=== PATIENT | female | born 1950 | race Caucasian/White ===

== ENCOUNTER 2018-05-15 15:19 | Observation (INO) | payer MEDICARE, MEDICAID ==
[~2018-05-15] VITALS: Ht 162.6 cm; Wt 86.8 kg
[~2018-05-15 15:19] MED LIST: ALPR-624 PO; DULO-31 PO; FLUT1DIS4 INH; LEVO100T9 PO; MONT10TA21 PO; PREG150C PO; VERA240C2 PO
[2018-05-15] MEDS ORDERED: aspirin 81mg tab.chew PO ONE (15:35)
[2018-05-15 15:52] LABS: BASOPHILS % (AUTO) 0.3 % (0-1); EOSINOPHILS # (AUTO) 0.4 X10'3 (0-0.9); EOSINOPHILS % (AUTO) 3.8 % (0-6); HEMATOCRIT 47.5 % (35.0-45.0); LYMPHOCYTES # (AUTO) 2.1 X10'3 (1.1-4.8); MEAN CORPUSCULAR HEMOGLOBIN 31.7 PG (27.0-31.0); MEAN CORPUSCULAR HGB CONC 33.6 % (33.0-36.5); MEAN CORPUSCULAR VOLUME 94.4 FL (78-98); MONOCYTES # (AUTO) 0.6 X10'3 (0-0.9); MONOCYTES % (AUTO) 6.2 % (2-12); NEUTROPHILS # (AUTO) 6.1 X10'3 (1.8-7.7); NEUTROPHILS % (AUTO) 66.7 % (42-75); PLATELET COUNT 209 X10'3 (140-440); RED BLOOD COUNT 5.03 X10'6 (4.20-5.60); RED CELL DISTRIBUTION WIDTH 13.4 % (11.5-14.5); WHITE BLOOD COUNT 9.2 X10'3 (4.5-11.0)
[2018-05-15] MEDS: nitroGLYCERIN 0.4mg SUBLingual tab SL PRN ×2 (15:58→16:08)
[2018-05-15 16:08] LABS: ALANINE AMINOTRANSFERASE 56 U/L (12-78); ALBUMIN 4.3 G/DL (3.4-5.0); ALBUMIN/GLOBULIN RATIO 1.3 (1.1-1.5); ALKALINE PHOSPHATASE 150 IU/L (46-116); ANION GAP 8 (8-16); ASPARTATE AMINO TRANSFERASE 29 U/L (10-37); BILIRUBIN,TOTAL 0.7 MG/DL (0.1-1.0); BLOOD UREA NITROGEN 13 MG/DL (7-18); BUN/CREATININE RATIO 15.1 (6.6-38.0); CALCIUM 9.4 MG/DL (8.5-10.1); CHLORIDE 103 MMOL/L (99-107); CREATININE 0.86 MG/DL (0.40-0.90); GLUCOSE 141 MG/DL (70-104); POTASSIUM 3.4 MMOL/L (3.5-5.1); SODIUM 139 MMOL/L (135-145); TOTAL CARBON DIOXIDE 27.7 MMOL/L (24-32); TOTAL PROTEIN 7.5 G/DL (6.4-8.2); eGFR 66 ML/MIN
[2018-05-15 16:09] LABS: PARTIAL THROMBOPLASTIN TIME 27 SECONDS (22-32); PROTHROMBIN TIME 10.6 SECONDS (9.0-12.0)
[2018-05-15] MEDS ORDERED: metoprolol tartrate 1mg/ml inj IV ONE (16:20)
[2018-05-15] MEDS ORDERED: [UNRECOGNIZED DRUG - CODE] PO (16:40)
[2018-05-15] MEDS ORDERED: CELE200C PO (16:41)
[2018-05-15] MEDS ORDERED: GABA-532 PO (16:41)
[2018-05-15] MEDS ORDERED: SYN0.088T PO (16:43)
[2018-05-15] MEDS ORDERED: BUSP10TA3 PO (16:43)
[2018-05-15] MEDS ORDERED: TRAZ-219 PO (16:45)
[2018-05-15] MEDS ORDERED: CYCL-394 PO (16:46)
[2018-05-15] MEDS ORDERED: LEVA15HF4 INH (16:47)
[2018-05-15] MEDS ORDERED: ATOR10TA87 PO (16:49)
[2018-05-15] MEDS ORDERED: HYDR-4353 PO (16:49)
[2018-05-15] MEDS ORDERED: ASPI81TA52 PO (16:51)
[2018-05-15] MEDS ORDERED: CETI10TA15 PO (16:53)
[2018-05-15] MEDS ORDERED: ACET-2144 PO (16:53)
[2018-05-15] MEDS ORDERED: OXYM30SP67 (16:57)
[2018-05-15] MEDS ORDERED: VITA0.4T2 PO (16:57)
[2018-05-15] MEDS ORDERED: BIOT10006 PO (16:57)
[2018-05-15] MEDS ORDERED: MULT-1133 PO (16:57)
[2018-05-15] MEDS ORDERED: MELA10TA2 PO (16:57)
[2018-05-15] MEDS ORDERED: DIPH25CA83 PO (16:57)
[2018-05-15] MEDS ORDERED: MAGN500C16 PO (16:57)
[2018-05-15] MEDS ORDERED: potassium Cl 40MEQ/NS 500ml 500 ML IV PRN ×2 (17:35)
[2018-05-15] MEDS ORDERED: HYDROcodone/acetaminophen 10/325mg tab PO PRN ×2 (17:35→17:45)
[2018-05-15] MEDS ORDERED: potassium Cl 20 mEq SR tablet PO PRN ×2 (17:35)
[2018-05-15] MEDS ORDERED: bisacodyl 10mg suppository rectal RC PRN (17:35)
[2018-05-15] MEDS ORDERED: acetaminophen 325mg tablet PO PRN ×2 (17:35→17:45)
[2018-05-15] MEDS ORDERED: magnesium hydroxide 30ml (MOM) UD suspension PO PRN (17:35)
[2018-05-15] MEDS ORDERED: HYDROcodone/acetaminophen 5mg/325mg tablet PO PRN (17:35)
[2018-05-15] MEDS ORDERED: magnesium 4gm in 100ml NS 100 ML IV PRN (17:35)
[2018-05-15] MEDS ORDERED: magnesium Cl slow-release 64mg tablet PO PRN (17:35)
[2018-05-15] MEDS ORDERED: magnesium 1gm/100ml D5W IVPB 100 ML IV PRN (17:35)
[2018-05-15] MEDS ORDERED: ondansetron/PF 4mg/2ml inj IV PRN (17:35)
[2018-05-15] MEDS ORDERED: mag hydrox/Alum hydrox/simeth 30ml oral suspension PO PRN (17:35)
[2018-05-15] MEDS ORDERED: nitroGLYCERIN 0.4mg SUBLingual tab SL PRN (17:40)
[2018-05-15] MEDS ORDERED: lisinopril 10 MG tablet PO SCH (17:40)
[2018-05-15] MEDS ORDERED: potassium Cl 20 mEq SR tablet PO STA (17:43)
[2018-05-15] MEDS: pantoprazole 40 MG vial IV SCH (18:36)
[2018-05-15] MEDS: LIDOcaine 5% patch TP SCH (18:37)
[2018-05-15] MEDS: potassium cl 20mEq in 1/2 NS 1,000 ML IV SCH (18:46)
[2018-05-15] MEDS ORDERED: albuterol 2.5 MG/3 ML nebule NEB PRN (18:55)
[2018-05-15] MEDS: albuterol 2.5 MG/3 ML nebule NEB SCH (19:00)
[2018-05-15] MEDS: losartan 50mg tablet PO SCH (19:25)
[2018-05-15] MEDS: amLODIPine 5mg tablet PO SCH (19:26)
[2018-05-15] MEDS: BUDESONIDE 0.25 MG/2 ML AMPUL.NEB IH SCH (20:00)
[2018-05-15] MEDS ORDERED: albuterol 2.5 MG/3 ML nebule NEB SCH (20:00)
[2018-05-15] MEDS: busPIRone 15mg tablet PO SCH (20:20)
[2018-05-15] MEDS: docusate sod 100mg capsule PO SCH (20:20)
[2018-05-15] MEDS ORDERED: magnesium oxide 400mg tablet PO SCH (21:00)
[2018-05-15] MEDS ORDERED: Melatonin 3mg tablet PO SCH (21:00)
[2018-05-15] MEDS ORDERED: cyclobenzaprine 10mg tablet PO SCH (21:00)
[2018-05-15] MEDS ORDERED: traZODone 50mg tablet PO SCH (21:00)
[2018-05-15] MEDS ORDERED: montelukast 10mg tablet PO SCH (21:00)
[2018-05-15 21:10] VITALS: BP 186/72
[2018-05-15] MEDS: gabapentin 300mg capsule PO SCH (21:24)
[2018-05-16] VITALS: BP 157/76
[2018-05-16 03:47] LABS: BASOPHILS % (AUTO) 0.4 % (0-1); EOSINOPHILS # (AUTO) 0.4 X10'3 (0-0.9); EOSINOPHILS % (AUTO) 5.3 % (0-6); HEMATOCRIT 43.2 % (35.0-45.0); HEMOGLOBIN 14.2 g/dl (12.0-16.0); LYMPHOCYTES # (AUTO) 2.2 X10'3 (1.1-4.8); LYMPHOCYTES % (AUTO) 29.3 % (21-51); MEAN CORPUSCULAR HEMOGLOBIN 31.1 PG (27.0-31.0); MEAN CORPUSCULAR VOLUME 94.4 FL (78-98); MEAN PLATELET VOLUME 9.1 FL (7.4-10.4); MONOCYTES # (AUTO) 0.7 X10'3 (0-0.9); MONOCYTES % (AUTO) 9.4 % (2-12); NEUTROPHILS # (AUTO) 4.1 X10'3 (1.8-7.7); NEUTROPHILS % (AUTO) 55.6 % (42-75); PLATELET COUNT 182 X10'3 (140-440); RED BLOOD COUNT 4.57 X10'6 (4.20-5.60); RED CELL DISTRIBUTION WIDTH 13.4 % (11.5-14.5); WHITE BLOOD COUNT 7.4 X10'3 (4.5-11.0)
[2018-05-16 04:01] LABS: ALANINE AMINOTRANSFERASE 44 U/L (12-78); ALBUMIN 3.4 G/DL (3.4-5.0); ALBUMIN/GLOBULIN RATIO 1.2 (1.1-1.5); ALKALINE PHOSPHATASE 125 IU/L (46-116); ANION GAP 9 (8-16); ASPARTATE AMINO TRANSFERASE 21 U/L (10-37); BILIRUBIN,TOTAL 0.7 MG/DL (0.1-1.0); BLOOD UREA NITROGEN 14 MG/DL (7-18); BUN/CREATININE RATIO 17.9 (6.6-38.0); CALCIUM 8.8 MG/DL (8.5-10.1); CHLORIDE 109 MMOL/L (99-107); CREATININE 0.78 MG/DL (0.40-0.90); GLUCOSE 113 MG/DL (70-104); POTASSIUM 3.9 MMOL/L (3.5-5.1); SODIUM 143 MMOL/L (135-145); TOTAL PROTEIN 6.2 G/DL (6.4-8.2); eGFR 74 ML/MIN
[2018-05-16 04:04] LABS: CHOL/HDL RATIO 3.4 (0.00-4.99); CHOLESTEROL 168 MG/DL (0-200); HDL CHOLESTEROL 49 MG/DL (35-60); LDL CHOLESTEROL 102 MG/DL (50-100); TRIGLYCERIDES 95 MG/DL (20-135)
[2018-05-16] MEDS: potassium cl 20mEq in 1/2 NS 1,000 ML IV SCH (05:08)
[2018-05-16] MEDS: BUDESONIDE 0.25 MG/2 ML AMPUL.NEB IH SCH (07:15)
[2018-05-16] MEDS: albuterol 2.5 MG/3 ML nebule NEB SCH ×2 (07:15→10:22)
[2018-05-16 07:33] VITALS: BP 168/86
[2018-05-16] MEDS ORDERED: duloxetine 30mg CAPSULE.DR PO SCH (08:00)
[2018-05-16] MEDS ORDERED: cetirizine 10mg tablet PO SCH (08:00)
[2018-05-16] MEDS ORDERED: vitamin B comp w/Vit. C tab 1 TAB TABLET PO SCH (08:00)
[2018-05-16] MEDS ORDERED: multivitamins, therapeutics tablet PO SCH (08:00)
[2018-05-16] MEDS ORDERED: levoTHYROXINE 88mcg tablet PO SCH (08:00)
[2018-05-16] MEDS ORDERED: atorvastatin 10mg tablet PO SCH (08:00)
[2018-05-16] MEDS ORDERED: K and/or MAG REPLACEMENT MC SCH (08:00)
[2018-05-16] MEDS ORDERED: aspirin 81mg tablet.DR PO SCH ×2 (08:00)
[2018-05-16] MEDS: busPIRone 15mg tablet PO SCH (08:02)
[2018-05-16] MEDS: losartan 50mg tablet PO SCH (08:03)
[2018-05-16] MEDS: docusate sod 100mg capsule PO SCH (08:03)
[2018-05-16] MEDS: gabapentin 300mg capsule PO SCH ×2 (08:03→13:37)
[2018-05-16] MEDS: amLODIPine 5mg tablet PO SCH (08:05)
[2018-05-16] MEDS: LIDOcaine 5% patch TP SCH (08:06)
[2018-05-16] MEDS ORDERED: amLODIPine 5mg tablet PO SCH (08:50)
[2018-05-16] MEDS: pantoprazole 40 MG vial IV SCH (09:16)
[2018-05-16] MEDS ORDERED: oxymetazoline 15 ML nasal spray NS PRN (10:05)
[2018-05-16 10:30] VITALS: BP 146/78
[2018-05-16] MEDS ORDERED: LIDO700A47 TP (13:43)
[2018-05-16] MEDS ORDERED: NITR0.4T51 SL (13:43)
[2018-05-16] MEDS ORDERED: PANT-47 PO (13:54)
[2018-05-17] MEDS ORDERED: pantoprazole 40mg Tablet.DR PO SCH (07:30)
== END 2018-05-16 15:45 | disposition home or self-care (01) ==
LOC: ER 15:19 → ED HOLD 16:59 → SUR 3N 21:03
PROVIDERS: ADMIT Internal Medicine; ATTEND Internal Medicine
DX: R07.89 Other chest pain (principal); E03.9 Hypothyroidism, unspecified; E78.00 Pure hypercholesterolemia, unspecified; E87.6 Hypokalemia; F41.9 Anxiety disorder, unspecified; G47.33 Obstructive sleep apnea (adult) (pediatric); J45.909 Unspecified asthma, uncomplicated; K21.9 Gastro-esophageal reflux disease without esophagitis; I10 Essential (primary) hypertension; M79.7 Fibromyalgia; I69.351 Hemiplegia and hemiparesis following cerebral infarction affecting right dominant side; M54.9 Dorsalgia, unspecified; G89.29 Other chronic pain; Z88.8 Allergy status to other drugs, medicaments and biological substances; Z90.49 Acquired absence of other specified parts of digestive tract; Z90.710 Acquired absence of both cervix and uterus; Z96.642 Presence of left artificial hip joint; Z96.653 Presence of artificial knee joint, bilateral
CPT/HCPCS: 36415; 71045; 80053; 80061; 83735; 83880; 84443; 84484; 85025; 85610; 85730; 87070; 93005; 93306; 94640; 94760; 96365; 96366; 96375; 96376; 99285; C9113; G0378; J3490

== ENCOUNTER 2019-06-25 12:55 | Inpatient (IN) | payer MEDICARE, MEDICAID ==
[~2019-06-25] VITALS: Ht 162.6 cm; Wt 85.6 kg
[~2019-06-25 12:55] MED LIST changes: +ACET-2144 PO; -ALPR-624 PO; +ASPI81TA52 PO; +ATOR10TA87 PO; +BIOT10006 PO; +BUSP10TA3 PO; +CETI10TA15 PO; +CYCL-394 PO; +DIPH25CA83 PO; +GABA-532 PO; +HYDR-4353 PO; +LEVA15HF4 INH; -LEVO100T9 PO; +LIDO700A47 TP; +MAGN500C16 PO; +MELA10TA2 PO; +MULT-1133 PO; +NITR0.4T51 SL; +OXYM30SP67; +PANT-47 PO; -PREG150C PO; +SYN0.088T PO; +TRAZ-219 PO; -VERA240C2 PO; +VITA0.4T2 PO; +[UNRECOGNIZED DRUG - CODE] PO
--- NOTE | 2019-06-25 13:29 | NUR ---
TO CT VIA WHEELCHAIR AT THIS TIME. NO SIGNS OF DISTRESS NOTED, FAMILY AT BEDSIDE.
[2019-06-25 13:31] LABS: BASOPHILS # (AUTO) 0.1 X10'3 (0-0.2); BASOPHILS % (AUTO) 0.9 % (0-1); EOSINOPHILS # (AUTO) 0.7 X10'3 (0-0.9); EOSINOPHILS % (AUTO) 7.2 % (0-6); LYMPHOCYTES # (AUTO) 2.6 X10'3 (1.1-4.8); LYMPHOCYTES % (AUTO) 27.3 % (21-51); MEAN CORPUSCULAR HEMOGLOBIN 32.2 PG (27.0-31.0); MEAN CORPUSCULAR VOLUME 94.8 FL (78-98); MEAN PLATELET VOLUME 9.8 FL (7.4-10.4); MONOCYTES # (AUTO) 0.6 X10'3 (0-0.9); MONOCYTES % (AUTO) 6.4 % (2-12); NEUTROPHILS # (AUTO) 5.5 X10'3 (1.8-7.7); NEUTROPHILS % (AUTO) 58.2 % (42-75); PLATELET COUNT 196 X10'3 (140-440); RED BLOOD COUNT 4.64 X10'6 (4.20-5.60); RED CELL DISTRIBUTION WIDTH 14.2 % (11.5-14.5); WHITE BLOOD COUNT 9.5 X10'3 (4.5-11.0)
[2019-06-25 13:38] LABS: PARTIAL THROMBOPLASTIN TIME 23 SECONDS (22-32)
[2019-06-25 13:39] LABS: ALANINE AMINOTRANSFERASE 40 U/L (12-78); ALBUMIN 4.1 G/DL (3.4-5.0); ALBUMIN/GLOBULIN RATIO 1.5 (1.1-1.5); ALKALINE PHOSPHATASE 121 IU/L (46-116); ANION GAP 10 (8-16); ASPARTATE AMINO TRANSFERASE 25 U/L (10-37); BILIRUBIN,TOTAL 0.5 MG/DL (0.1-1.0); BLOOD UREA NITROGEN 14 MG/DL (7-18); BUN/CREATININE RATIO 14.7 (6.6-38.0); CALCIUM 9.3 MG/DL (8.5-10.1); CHLORIDE 105 MMOL/L (99-107); CREATININE 0.95 MG/DL (0.40-0.90); GLUCOSE 141 MG/DL (70-104); SODIUM 141 MMOL/L (135-145); TOTAL CARBON DIOXIDE 25.9 MMOL/L (24-32); TOTAL PROTEIN 6.8 G/DL (6.4-8.2); eGFR 58 ML/MIN
[2019-06-25 13:42] LABS: TROPONIN I < 0.04 NG/ML (0.0-0.05)
[2019-06-25 13:43] LABS: POTASSIUM 3.9 MMOL/L (3.5-5.1)
[2019-06-25] MEDS ORDERED: diphenhydrAMINE 50 mg/ml inj IV PRN (15:00)
[2019-06-25] MEDS ORDERED: diphenhydrAMINE 25mg capsule PO PRN (15:00)
[2019-06-25] MEDS ORDERED: potassium Cl 20 mEq SR tablet PO PRN ×2 (15:00)
[2019-06-25] MEDS ORDERED: magnesium 4gm in 100ml NS 100 ML IV PRN (15:00)
[2019-06-25] MEDS ORDERED: mag hydrox/Alum hydrox/simeth 30ml oral suspension PO PRN (15:00)
[2019-06-25] MEDS ORDERED: magnesium 2GM in 50ml NS 50 ML IV PRN (15:00)
[2019-06-25] MEDS ORDERED: acetaminophen 325mg tablet PO PRN (15:00)
[2019-06-25] MEDS ORDERED: potassium CL 10mEq/100ml bag 100 ML IV PRN ×2 (15:00)
[2019-06-25] MEDS ORDERED: metoclopramide 5 mg/ml inj IV PRN (15:00)
[2019-06-25] MEDS ORDERED: magnesium hydroxide 30ml (MOM) UD suspension PO PRN (15:00)
[2019-06-25] MEDS ORDERED: magnesium Cl slow-release 64mg tablet PO PRN (15:00)
[2019-06-25] MEDS ORDERED: bisacodyl 10mg suppository rectal RC PRN (15:00)
[2019-06-25] MEDS ORDERED: ondansetron/PF 4mg/2ml inj IV PRN (15:00)
[2019-06-25] MEDS ORDERED: acetaminophen 650mg rectal suppository RC PRN (15:00)
[2019-06-25 15:25] LABS: COLOR,URINE YELLOW (Yellow); GLUCOSE, URINE NEGATIVE (Neg); KETONES,URINE NEGATIVE (Neg); LEUKOCYTE ESTERASE ,URINE NEGATIVE (Neg); NITRITES, URINE NEGATIVE (Neg); OCCULT BLOOD,URINE LARGE (Neg); PH,URINE 5.5 (4.8-8.0); PROTEIN,URINE NEGATIVE (Neg); UROBILINOGEN,URINE 0.2 E.U/dL (0.2-1.0)
[2019-06-25 15:30] LABS: CLARITY,URINE SLIGHTLY CLOUDY (Clear); UA COLLECTION TYPE VOIDED
[2019-06-25 15:35] LABS: BACTERIA,URINE FEW /HPF (Neg); RBC,URINE 20-50 /HPF (0-2); SQUAMOUS EPITHELIAL CELL,UR FEW /LPF (FEW)
[2019-06-25 15:46] LABS: PHOSPHORUS 4.1 MG/DL (2.3-4.5)
[2019-06-25] MEDS ORDERED: dextrose ORAL solution 15 GM/59 ML bottle PO PRN ×2 (15:50)
[2019-06-25] MEDS ORDERED: MESSAGE TO PHARMACY PO ONE (15:50)
[2019-06-25] MEDS ORDERED: insulin Lispro (HumaLOG) vial - multi-dose SQ SCH (15:50)
[2019-06-25] MEDS ORDERED: glucagon, human recombinant 1mg kit SUBCUT PRN (15:50)
[2019-06-25] MEDS ORDERED: dextrose 50%-water 50ml dispensing syringe IV PRN ×2 (15:50)
--- NOTE | 2019-06-25 16:00 | NUR ---
patient to MRI prior to floor.
[2019-06-25] MEDS ORDERED: CELE-85 PO (16:03)
[2019-06-25] MEDS ORDERED: BACL10TA PO (16:06)
[2019-06-25] MEDS ORDERED: LISI-600 PO (16:07)
[2019-06-25] MEDS ORDERED: ACET-2144 PO (16:11)
[2019-06-25 16:35] LABS: HEMOGLOBIN A1C 6.7 % (4.5-6.2)
[2019-06-25 17:01] VITALS: BP 162/97
[2019-06-25] MEDS: normal saline 1000ml 1,000 ML IV SCH (17:16)
[2019-06-25] MEDS ORDERED: albuterol 2.5 MG/3 ML nebule NEB PRN (17:30)
[2019-06-25] MEDS ORDERED: aspirin 325mg tablet PO ONE (17:40)
[2019-06-25 18:00] VITALS: BP 162/97
--- NOTE | 2019-06-25 18:07 | NUR ---
report given to Hetal MCCRAY
[2019-06-25] MEDS: K and/or MAG REPLACEMENT MC SCH (20:00)
[2019-06-25] MEDS: budesonide 0.5mg/2ml UD nebule IH SCH (20:39)
[2019-06-25] MEDS: albuterol 2.5 MG/3 ML nebule NEB SCH (20:39)
[2019-06-25] MEDS: insulin glargine (Lantus) pen - multi-dose SQ SCH (21:00)
[2019-06-25] MEDS ORDERED: MAGNESIUM OXIDE 500 MG PO SCH (21:00)
[2019-06-25] MEDS ORDERED: temazepam 15mg capsule PO PRN (21:00)
[2019-06-25] MEDS: montelukast 10mg tablet PO SCH (21:08)
[2019-06-25] MEDS: Melatonin 3mg tablet PO SCH (21:09)
[2019-06-25] MEDS: gabapentin 300mg capsule PO SCH (21:10)
[2019-06-25] MEDS: traZODone 50mg tablet PO SCH (21:10)
[2019-06-25] MEDS: docusate sod 100mg capsule PO SCH (21:10)
[2019-06-25] MEDS: busPIRone 5mg tablet PO SCH (21:10)
[2019-06-25] MEDS: acetaminophen 325mg tablet PO PRN (21:37)
[2019-06-25 22:00] VITALS: BP 164/53
[2019-06-26] MEDS: baclofen 10mg tablet PO SCH ×3 (00:10→15:31)
[2019-06-26 02:00] VITALS: BP 141/68
[2019-06-26] MEDS: albuterol 2.5 MG/3 ML nebule NEB SCH ×4 (02:00→20:00)
[2019-06-26] MEDS: normal saline 1000ml 1,000 ML IV SCH ×3 (04:30→15:31)
[2019-06-26 06:00] VITALS: BP 146/64
--- NOTE | 2019-06-26 06:18 | NUR ---
Problems reprioritized. Patient report given, questions answered & plan of care reviewed with MAHENDRA SINGH.
[2019-06-26 06:26] LABS: BASOPHILS # (AUTO) 0.1 X10'3 (0-0.2); BASOPHILS % (AUTO) 0.8 % (0-1); EOSINOPHILS # (AUTO) 0.6 X10'3 (0-0.9); EOSINOPHILS % (AUTO) 8.4 % (0-6); HEMATOCRIT 38.7 % (35.0-45.0); HEMOGLOBIN 13.3 g/dl (12.0-16.0); LYMPHOCYTES # (AUTO) 1.8 X10'3 (1.1-4.8); LYMPHOCYTES % (AUTO) 27.8 % (21-51); MEAN CORPUSCULAR HEMOGLOBIN 32.3 PG (27.0-31.0); MEAN CORPUSCULAR HGB CONC 34.3 g/dL (33.0-36.5); MEAN CORPUSCULAR VOLUME 94.2 FL (78-98); MEAN PLATELET VOLUME 9.2 FL (7.4-10.4); MONOCYTES # (AUTO) 0.5 X10'3 (0-0.9); MONOCYTES % (AUTO) 7.5 % (2-12); NEUTROPHILS # (AUTO) 3.7 X10'3 (1.8-7.7); NEUTROPHILS % (AUTO) 55.5 % (42-75); PLATELET COUNT 151 X10'3 (140-440); RED BLOOD COUNT 4.11 X10'6 (4.20-5.60); RED CELL DISTRIBUTION WIDTH 14.3 % (11.5-14.5); WHITE BLOOD COUNT 6.7 X10'3 (4.5-11.0)
--- NOTE | 2019-06-26 06:36 | NUR ---
Patient in room [facility]TH[facility] 4017. I have received report from Hetal MCCRAY and had the opportunity to ask questions and assume patient care.
[2019-06-26 07:03] LABS: ALANINE AMINOTRANSFERASE 37 U/L (12-78); ALBUMIN 3.4 G/DL (3.4-5.0); ALBUMIN/GLOBULIN RATIO 1.4 (1.1-1.5); ALKALINE PHOSPHATASE 91 IU/L (46-116); ANION GAP 8 (8-16); ASPARTATE AMINO TRANSFERASE 18 U/L (10-37); BILIRUBIN,TOTAL 0.6 MG/DL (0.1-1.0); BLOOD UREA NITROGEN 14 MG/DL (7-18); BUN/CREATININE RATIO 15.4 (6.6-38.0); CALCIUM 8.3 MG/DL (8.5-10.1); CHLORIDE 109 MMOL/L (99-107); CHOL/HDL RATIO 3.1 (0.00-4.99); CHOLESTEROL 138 MG/DL (0-200); CREATININE 0.91 MG/DL (0.40-0.90); GLUCOSE 142 MG/DL (70-104); HDL CHOLESTEROL 44 MG/DL (35-60); LDL CHOLESTEROL 84 MG/DL (50-100); MAGNESIUM 1.7 MG/DL (1.5-2.4); PHOSPHORUS 4.2 MG/DL (2.3-4.5); POTASSIUM 3.7 MMOL/L (3.5-5.1); SODIUM 143 MMOL/L (135-145); TOTAL CARBON DIOXIDE 25.6 MMOL/L (24-32); TOTAL PROTEIN 5.8 G/DL (6.4-8.2); TRIGLYCERIDES 84 MG/DL (20-135); eGFR 61 ML/MIN
[2019-06-26] MEDS: K and/or MAG REPLACEMENT MC SCH ×2 (07:16→20:00)
[2019-06-26] MEDS: budesonide 0.5mg/2ml UD nebule IH SCH ×2 (08:00→20:00)
[2019-06-26] MEDS: duloxetine 30mg CAPSULE.DR PO SCH (08:42)
[2019-06-26] MEDS: busPIRone 5mg tablet PO SCH ×2 (08:42→21:27)
[2019-06-26] MEDS: docusate sod 100mg capsule PO SCH ×2 (08:42→20:00)
[2019-06-26] MEDS: atorvastatin 20mg tablet PO SCH (08:43)
[2019-06-26] MEDS: gabapentin 300mg capsule PO SCH ×2 (08:43→12:30)
[2019-06-26] MEDS: pantoprazole 40mg Tablet.DR PO SCH (08:43)
[2019-06-26] MEDS: levoTHYROXINE 88mcg tablet PO SCH (08:43)
[2019-06-26] MEDS: cetirizine 10mg tablet PO SCH (08:44)
[2019-06-26] MEDS: aspirin 325mg tablet PO SCH (08:44)
--- NOTE | 2019-06-26 12:15 | NUR ---
I called [facility] to set up teleneuro eval and faxed all the information to them; I also brought the Teleneuro cart to her room per the [facility] request.
--- NOTE | 2019-06-26 16:07 | NUR ---
Patient is awaiting tele neuro consultation at this time, patient up ambulating throughout the day to the bathroom with a stand by assist.
--- NOTE | 2019-06-26 17:30 | NUR ---
I have called [facility] to ask why the evaluation has not been done, and they took the information down and said the neurologist will be on soon. The camera/ Tele machine is in room in place. She has agreed to the Teleneuro evaluation.
[2019-06-26 18:00] VITALS: BP 170/69
--- NOTE | 2019-06-26 18:06 | NUR ---
Problems reprioritized. Patient report given, questions answered & plan of care reviewed with Hetal MCCRAY.
[2019-06-26] MEDS: insulin glargine (Lantus) pen - multi-dose SQ SCH (21:00)
[2019-06-26] MEDS ORDERED: gabapentin 400mg capsule PO SCH (21:00)
[2019-06-26] MEDS: montelukast 10mg tablet PO SCH (21:23)
[2019-06-26] MEDS: traZODone 50mg tablet PO SCH (21:23)
[2019-06-26] MEDS: Melatonin 3mg tablet PO SCH (21:24)
[2019-06-26] MEDS ORDERED: gabapentin 300mg capsule PO ONE (21:40)
[2019-06-26 22:00] VITALS: BP 153/75
[2019-06-27] MEDS: baclofen 10mg tablet PO SCH ×3 (00:20→16:47)
[2019-06-27] MEDS: normal saline 1000ml 1,000 ML IV SCH ×2 (01:09→13:00)
[2019-06-27] MEDS: albuterol 2.5 MG/3 ML nebule NEB SCH ×4 (02:00→19:45)
[2019-06-27 06:00] VITALS: BP 159/79
[2019-06-27 06:35] LABS: BASOPHILS % (AUTO) 0.7 % (0-1); EOSINOPHILS # (AUTO) 0.6 X10'3 (0-0.9); EOSINOPHILS % (AUTO) 8.7 % (0-6); LYMPHOCYTES % (AUTO) 30.3 % (21-51); MEAN CORPUSCULAR HEMOGLOBIN 32.9 PG (27.0-31.0); MEAN CORPUSCULAR HGB CONC 34.3 g/dL (33.0-36.5); MEAN CORPUSCULAR VOLUME 96.1 FL (78-98); MEAN PLATELET VOLUME 9.4 FL (7.4-10.4); MONOCYTES # (AUTO) 0.5 X10'3 (0-0.9); MONOCYTES % (AUTO) 7.9 % (2-12); NEUTROPHILS # (AUTO) 3.5 X10'3 (1.8-7.7); NEUTROPHILS % (AUTO) 52.4 % (42-75); PLATELET COUNT 142 X10'3 (140-440); RED BLOOD COUNT 3.96 X10'6 (4.20-5.60); WHITE BLOOD COUNT 6.6 X10'3 (4.5-11.0)
--- NOTE | 2019-06-27 06:44 | NUR ---
Problems reprioritized. Patient report given, questions answered & plan of care reviewed with MAHENDRA TRACY.
[2019-06-27 06:51] LABS: ALANINE AMINOTRANSFERASE 29 U/L (12-78); ALBUMIN 3.2 G/DL (3.4-5.0); ALBUMIN/GLOBULIN RATIO 1.4 (1.1-1.5); ALKALINE PHOSPHATASE 86 IU/L (46-116); ANION GAP 6 (8-16); ASPARTATE AMINO TRANSFERASE 13 U/L (10-37); BILIRUBIN,TOTAL 0.5 MG/DL (0.1-1.0); BLOOD UREA NITROGEN 13 MG/DL (7-18); BUN/CREATININE RATIO 18.3 (6.6-38.0); CALCIUM 8.3 MG/DL (8.5-10.1); CHLORIDE 110 MMOL/L (99-107); CREATININE 0.71 MG/DL (0.40-0.90); GLUCOSE 136 MG/DL (70-104); MAGNESIUM 1.7 MG/DL (1.5-2.4); PHOSPHORUS 3.6 MG/DL (2.3-4.5); POTASSIUM 3.7 MMOL/L (3.5-5.1); SODIUM 142 MMOL/L (135-145); TOTAL CARBON DIOXIDE 25.7 MMOL/L (24-32); TOTAL PROTEIN 5.5 G/DL (6.4-8.2); eGFR 82 ML/MIN
[2019-06-27] MEDS: K and/or MAG REPLACEMENT MC SCH ×2 (08:00→20:00)
[2019-06-27] MEDS: budesonide 0.5mg/2ml UD nebule IH SCH ×2 (08:00→19:44)
[2019-06-27] MEDS: docusate sod 100mg capsule PO SCH ×2 (08:00→20:00)
[2019-06-27] MEDS: busPIRone 5mg tablet PO SCH ×2 (08:10→19:36)
[2019-06-27] MEDS: duloxetine 30mg CAPSULE.DR PO SCH (08:11)
[2019-06-27] MEDS: atorvastatin 20mg tablet PO SCH (08:12)
[2019-06-27] MEDS: pantoprazole 40mg Tablet.DR PO SCH (08:14)
[2019-06-27] MEDS: aspirin 325mg tablet PO SCH (08:14)
[2019-06-27] MEDS: cetirizine 10mg tablet PO SCH (08:14)
[2019-06-27] MEDS: levoTHYROXINE 88mcg tablet PO SCH (08:14)
[2019-06-27] MEDS: gabapentin 300mg capsule PO SCH ×2 (08:14→19:36)
[2019-06-27] MEDS: acetaminophen 325mg tablet PO PRN (08:16)
--- NOTE | 2019-06-27 08:54 | NUR ---
irish yanes tx at this time Addendum: 06/27/19 at 0855 by Snow Liang RT Amended: Links added.
[2019-06-27] MEDS ORDERED: HYDROcodone/acetaminophen 5mg/325mg tablet PO ONE (09:40)
[2019-06-27 10:00] VITALS: BP 177/75
[2019-06-27 14:00] VITALS: BP 171/60
--- NOTE | 2019-06-27 14:49 | NUR ---
patient refused svn tx Addendum: 06/27/19 at 1449 by Snow Liang RT Amended: Links added.
[2019-06-27 18:00] VITALS: BP 160/79
--- NOTE | 2019-06-27 18:20 | NUR ---
Problems reprioritized. Patient report given, questions answered & plan of care reviewed with MAHENDRA Bill.
[2019-06-27] MEDS ORDERED: diphenhydrAMINE 25mg capsule PO ONE (18:30)
[2019-06-27] MEDS ORDERED: gadobutrol 10mmol/10ml inj. IV ONE (19:18)
[2019-06-27] MEDS: traZODone 50mg tablet PO SCH (19:35)
[2019-06-27] MEDS: Melatonin 3mg tablet PO SCH (19:36)
[2019-06-27] MEDS: montelukast 10mg tablet PO SCH (19:36)
[2019-06-27] MEDS: insulin glargine (Lantus) pen - multi-dose SQ SCH (21:00)
[2019-06-27] MEDS: prednisone 10mg tablet PO PRN (21:06)
[2019-06-27 21:45] VITALS: BP 169/77
[2019-06-27 22:08] VITALS: BP 151/66
[2019-06-28] MEDS: baclofen 10mg tablet PO SCH ×3 (00:41→15:29)
[2019-06-28] MEDS: cephalexin 500mg capsule PO SCH ×3 (00:42→15:29)
[2019-06-28] MEDS: normal saline 1000ml 1,000 ML IV SCH ×3 (00:43→17:41)
[2019-06-28] MEDS: prednisone 10mg tablet PO PRN ×2 (02:48→09:35)
[2019-06-28] MEDS: albuterol 2.5 MG/3 ML nebule NEB SCH ×4 (03:07→20:00)
[2019-06-28] MEDS: hydrALAZINE 20mg/ml inj. IV PRN ×2 (05:48→11:59)
[2019-06-28 06:00] VITALS: BP 178/79
--- NOTE | 2019-06-28 06:36 | NUR ---
Patient in room [facility]TH[facility] 4017. I have received report from Landy RN and had the opportunity to ask questions and assume patient care.
[2019-06-28 06:39] LABS: BASOPHILS % (AUTO) 0.3 % (0-1); EOSINOPHILS % (AUTO) 0.1 % (0-6); HEMATOCRIT 41.8 % (35.0-45.0); HEMOGLOBIN 14.5 g/dl (12.0-16.0); LYMPHOCYTES % (AUTO) 12.1 % (21-51); MEAN CORPUSCULAR HEMOGLOBIN 32.3 PG (27.0-31.0); MEAN CORPUSCULAR HGB CONC 34.6 g/dL (33.0-36.5); MEAN CORPUSCULAR VOLUME 93.4 FL (78-98); MEAN PLATELET VOLUME 9.5 FL (7.4-10.4); MONOCYTES # (AUTO) 0.1 X10'3 (0-0.9); MONOCYTES % (AUTO) 0.8 % (2-12); NEUTROPHILS # (AUTO) 7.1 X10'3 (1.8-7.7); NEUTROPHILS % (AUTO) 86.7 % (42-75); PLATELET COUNT 171 X10'3 (140-440); RED BLOOD COUNT 4.48 X10'6 (4.20-5.60); RED CELL DISTRIBUTION WIDTH 13.9 % (11.5-14.5); WHITE BLOOD COUNT 8.1 X10'3 (4.5-11.0)
[2019-06-28 06:52] LABS: ALANINE AMINOTRANSFERASE 32 U/L (12-78); ALBUMIN 3.8 G/DL (3.4-5.0); ALBUMIN/GLOBULIN RATIO 1.4 (1.1-1.5); ALKALINE PHOSPHATASE 99 IU/L (46-116); ANION GAP 10 (8-16); ASPARTATE AMINO TRANSFERASE 14 U/L (10-37); BILIRUBIN,TOTAL 0.4 MG/DL (0.1-1.0); BLOOD UREA NITROGEN 12 MG/DL (7-18); BUN/CREATININE RATIO 17.1 (6.6-38.0); CALCIUM 8.6 MG/DL (8.5-10.1); CHLORIDE 107 MMOL/L (99-107); GLUCOSE 195 MG/DL (70-104); MAGNESIUM 1.5 MG/DL (1.5-2.4); PHOSPHORUS 2.6 MG/DL (2.3-4.5); POTASSIUM 3.7 MMOL/L (3.5-5.1); SODIUM 140 MMOL/L (135-145); TOTAL PROTEIN 6.6 G/DL (6.4-8.2); eGFR 83 ML/MIN
[2019-06-28] MEDS: K and/or MAG REPLACEMENT MC SCH ×2 (07:30→20:00)
[2019-06-28] MEDS: gabapentin 300mg capsule PO SCH ×2 (07:40→19:33)
[2019-06-28] MEDS: aspirin 325mg tablet PO SCH (07:40)
[2019-06-28] MEDS: pantoprazole 40mg Tablet.DR PO SCH (07:41)
[2019-06-28] MEDS: duloxetine 30mg CAPSULE.DR PO SCH (07:41)
[2019-06-28] MEDS: busPIRone 5mg tablet PO SCH ×2 (07:41→19:31)
[2019-06-28] MEDS: docusate sod 100mg capsule PO SCH ×2 (07:41→19:31)
[2019-06-28] MEDS: levoTHYROXINE 88mcg tablet PO SCH (07:41)
[2019-06-28] MEDS: atorvastatin 20mg tablet PO SCH (07:42)
[2019-06-28] MEDS: cetirizine 10mg tablet PO SCH (07:42)
[2019-06-28] MEDS: acetaminophen 325mg tablet PO PRN (07:49)
[2019-06-28] MEDS: budesonide 0.5mg/2ml UD nebule IH SCH ×2 (08:00→20:00)
--- NOTE | 2019-06-28 10:22 | NUR ---
[facility] 4203 Re: Milka Guillen Pt having 10/10 headache. Tylenol given but no relief. Gave Hydralazine q6hr @ 0600 BP 178/91. Can we give anything for elevated BP?
[2019-06-28] MEDS ORDERED: HYDROcodone/acetaminophen 5mg/325mg tablet PO PRN (10:40)
[2019-06-28] MEDS: HYDROcodone/acetaminophen 10/325mg tab PO PRN ×3 (11:13→22:22)
[2019-06-28] MEDS ORDERED: iohexol 350MG/ML 100ml bottle IV ONE (12:26)
--- NOTE | 2019-06-28 18:33 | NUR ---
Problems reprioritized. Patient report given, questions answered & plan of care reviewed with Obed MCCRAY.
--- NOTE | 2019-06-28 19:00 | NUR ---
Patient in room [facility]TH[facility] 4017. I have received report from Babak MCCRAY and had the opportunity to ask questions and assume patient care.
[2019-06-28] MEDS: traZODone 50mg tablet PO SCH (19:31)
[2019-06-28] MEDS: Melatonin 3mg tablet PO SCH (19:33)
[2019-06-28] MEDS: montelukast 10mg tablet PO SCH (19:33)
[2019-06-28] MEDS: lisinopril 20mg tablet PO SCH (20:00)
[2019-06-28] MEDS: insulin glargine (Lantus) pen - multi-dose SQ SCH (21:00)
[2019-06-29] MEDS: cephalexin 500mg capsule PO SCH ×2 (00:46→07:52)
[2019-06-29] MEDS: baclofen 10mg tablet PO SCH ×2 (00:47→07:52)
[2019-06-29] MEDS: albuterol 2.5 MG/3 ML nebule NEB SCH (02:00)
[2019-06-29 06:00] VITALS: BP_SYST 140; BP_SYST 160; BP_DIAS 71; BP_DIAS 80
[2019-06-29] MEDS: busPIRone 5mg tablet PO SCH (07:52)
[2019-06-29] MEDS: atorvastatin 20mg tablet PO SCH (07:52)
[2019-06-29] MEDS: duloxetine 30mg CAPSULE.DR PO SCH (07:52)
[2019-06-29] MEDS: docusate sod 100mg capsule PO SCH (07:52)
[2019-06-29] MEDS: levoTHYROXINE 88mcg tablet PO SCH (07:53)
[2019-06-29] MEDS: budesonide 0.5mg/2ml UD nebule IH SCH (07:53)
[2019-06-29] MEDS: aspirin 325mg tablet PO SCH (07:53)
[2019-06-29] MEDS: HYDROcodone/acetaminophen 10/325mg tab PO PRN (07:54)
[2019-06-29] MEDS: cetirizine 10mg tablet PO SCH (07:54)
[2019-06-29] MEDS: lisinopril 20mg tablet PO SCH (07:56)
[2019-06-29] MEDS: pantoprazole 40mg Tablet.DR PO SCH (07:56)
[2019-06-29] MEDS: K and/or MAG REPLACEMENT MC SCH (08:00)
[2019-06-29] MEDS: gabapentin 300mg capsule PO SCH (08:01)
[2019-06-29 08:48] LABS: ALANINE AMINOTRANSFERASE 27 U/L (12-78); ALBUMIN 3.9 G/DL (3.4-5.0); ALBUMIN/GLOBULIN RATIO 1.4 (1.1-1.5); ALKALINE PHOSPHATASE 92 IU/L (46-116); ANION GAP 7 (8-16); ASPARTATE AMINO TRANSFERASE 19 U/L (10-37); BILIRUBIN,TOTAL 0.6 MG/DL (0.1-1.0); BLOOD UREA NITROGEN 14 MG/DL (7-18); BUN/CREATININE RATIO 16.5 (6.6-38.0); CHLORIDE 106 MMOL/L (99-107); CREATININE 0.85 MG/DL (0.40-0.90); GLUCOSE 111 MG/DL (70-104); MAGNESIUM 1.9 MG/DL (1.5-2.4); PHOSPHORUS 3.9 MG/DL (2.3-4.5); SODIUM 138 MMOL/L (135-145); TOTAL CARBON DIOXIDE 24.9 MMOL/L (24-32); TOTAL PROTEIN 6.7 G/DL (6.4-8.2); eGFR 67 ML/MIN
[2019-06-29 08:50] LABS: POTASSIUM 3.6 MMOL/L (3.5-5.1)
[2019-06-29] MEDS: normal saline 1000ml 1,000 ML IV SCH (08:57)
[2019-06-29 09:33] LABS: BASOPHILS % (AUTO) 0.3 % (0-1); EOSINOPHILS % (AUTO) 0.2 % (0-6); HEMATOCRIT 43.6 % (35.0-45.0); HEMOGLOBIN 14.5 g/dl (12.0-16.0); LYMPHOCYTES # (AUTO) 2.8 X10'3 (1.1-4.8); LYMPHOCYTES % (AUTO) 23.3 % (21-51); MEAN CORPUSCULAR HEMOGLOBIN 31.8 PG (27.0-31.0); MEAN CORPUSCULAR HGB CONC 33.3 g/dL (33.0-36.5); MEAN CORPUSCULAR VOLUME 95.6 FL (78-98); MEAN PLATELET VOLUME 9.3 FL (7.4-10.4); MONOCYTES # (AUTO) 0.7 X10'3 (0-0.9); NEUTROPHILS # (AUTO) 8.5 X10'3 (1.8-7.7); NEUTROPHILS % (AUTO) 70.2 % (42-75); PLATELET COUNT 177 X10'3 (140-440); RED BLOOD COUNT 4.56 X10'6 (4.20-5.60); RED CELL DISTRIBUTION WIDTH 14.2 % (11.5-14.5); WHITE BLOOD COUNT 12.1 X10'3 (4.5-11.0)
[2019-06-29 10:00] VITALS: BP 144/102
[2019-06-29] MEDS ORDERED: CEPH500C5 PO (12:17)
--- NOTE | 2019-06-29 14:45 | NUR ---
PATIENT DISCHARGED HOME SAFELY WITH BROTHER AND ALL BELONGINGS IN POSSESSION. PRESCRIPTION CALLED TO [facility]. DR SHARMA'S INFORMATION PROVIDED TO PATIENT FOR FOLLOW UP. PATIENT VERBALIZES UNDERSTANDING OF ALL DC INSTRUCTIONS.
== END 2019-06-29 14:44 | disposition home or self-care (01) | DRG 92 ==
LOC: ER 12:56 → ED HOLD 14:57 → ORTHO 4S 16:40
PROVIDERS: ADMIT Family Medicine; ATTEND Family Medicine
PROC: 5A09357 Assistance with Respiratory Ventilation, Less than 24 Consecutive Hours, Continuous Positive Airway Pressure (ICD-10-PCS; principal; 2019-06-26)
PROC: BW38YZZ Magnetic Resonance Imaging (MRI) of Head using Other Contrast (ICD-10-PCS; 2019-06-27)
PROC: B3251ZZ Computerized Tomography (CT Scan) of Bilateral Common Carotid Arteries using Low Osmolar Contrast (ICD-10-PCS; 2019-06-28)
PROC: B32G1ZZ Computerized Tomography (CT Scan) of Bilateral Vertebral Arteries using Low Osmolar Contrast (ICD-10-PCS; 2019-06-28)
PROC: B3281ZZ Computerized Tomography (CT Scan) of Bilateral Internal Carotid Arteries using Low Osmolar Contrast (ICD-10-PCS; 2019-06-28)
DX: I67.1 Cerebral aneurysm, nonruptured (principal); N17.9 Acute kidney failure, unspecified; N39.0 Urinary tract infection, site not specified; I69.351 Hemiplegia and hemiparesis following cerebral infarction affecting right dominant side; E03.9 Hypothyroidism, unspecified; E11.9 Type 2 diabetes mellitus without complications; E78.00 Pure hypercholesterolemia, unspecified; E78.5 Hyperlipidemia, unspecified; F43.10 Post-traumatic stress disorder, unspecified; I08.1 Rheumatic disorders of both mitral and tricuspid valves; F32.9 Major depressive disorder, single episode, unspecified; F41.9 Anxiety disorder, unspecified; G47.30 Sleep apnea, unspecified; G89.29 Other chronic pain; K21.9 Gastro-esophageal reflux disease without esophagitis; M19.90 Unspecified osteoarthritis, unspecified site; M54.9 Dorsalgia, unspecified; B96.20 Unspecified Escherichia coli [E. coli] as the cause of diseases classified elsewhere; R13.10 Dysphagia, unspecified; R47.1 Dysarthria and anarthria; I10 Essential (primary) hypertension; J45.909 Unspecified asthma, uncomplicated; M79.7 Fibromyalgia; Z79.51 Long term (current) use of inhaled steroids; Z79.890 Hormone replacement therapy; Z79.899 Other long term (current) drug therapy; Z90.49 Acquired absence of other specified parts of digestive tract; Z90.710 Acquired absence of both cervix and uterus; Z88.8 Allergy status to other drugs, medicaments and biological substances; Z79.82 Long term (current) use of aspirin
CPT/HCPCS: 36415; 70450; 70498; 70544; 70547; 70551; 70553; 71045; 72141; 80053; 80061; 81001; 82607; 82948; 83036; 83735; 84100; 84443; 84484; 85025; 85610; 85651; 85730; 86140; 87077; 87081; 87088; 87186; 92507; 92508; 92616; 93005; 93306; 93880; 94640; 94760; 97110; 97112; 97116; 97161; 97530; 99285; A9585; G0378; J0360; J1815; J2405; J2765; J7030; J7512; J7626; Q0163; Q9967

== ENCOUNTER 2023-08-29 13:53 | Emergency (ER) | payer MEDICARE, MEDICAID ==
[~2023-08-29] VITALS: Ht 162.6 cm; Wt 87.2 kg
[~2023-08-29 13:53] MED LIST changes: -ACET-2144 PO; +ADV50250 IH; +ASCO-10 PO; +ASPI-100 PO; -ASPI81TA52 PO; -ATOR10TA87 PO; +ATOR20TA66 PO; +BACL-11 PO; +BACL20TA PO; -BIOT10006 PO; -BUSP10TA3 PO; +BUSP15TA3 PO; +CALC-853 PO; +CETI10TA14 PO; -CETI10TA15 PO; -CYCL-394 PO; -DIPH25CA83 PO; -DULO-31 PO; -FLUT1DIS4 INH; -GABA-532 PO; +GABA300C PO; +HYDR-3972 PO; -HYDR-4353 PO; +HYDR25TA4 PO; +LEVO100T9 PO; -LIDO700A47 TP; -MAGN500C16 PO; +MAGN500C4 PO; -MELA10TA2 PO; +MELA5CAP PO; +MONT-40 PO; -MONT10TA21 PO; +MULT-1085 PO; -MULT-1133 PO; +NIFE90TA70 PO; -NITR0.4T51 SL; -OXYM30SP67; -PANT-47 PO; +PANT40TA54 PO; +SENN-263 PO; +SERT-434 PO; +SITA50TA PO; -SYN0.088T PO; +TERA5CAP4 PO; -TRAZ-219 PO; +TRAZ-251 PO; +VALS320T17 PO; -VITA0.4T2 PO; +VITA1TAB20 PO; -[UNRECOGNIZED DRUG - CODE] PO
[2023-08-29 16:30] VITALS: BP 156/63; PULSE 53; RESP 17; O2SAT 97
[2023-08-29 17:36] LABS: BASOPHILS # (AUTO) 0.1 X10'3 (0-0.2); BASOPHILS % (AUTO) 0.8 % (0-1); EOSINOPHILS # (AUTO) 0.4 X10'3 (0-0.9); EOSINOPHILS % (AUTO) 4.1 % (0-6); HEMATOCRIT 41.1 % (35.0-45.0); HEMOGLOBIN 14.1 g/dl (12.0-16.0); LYMPHOCYTES # (AUTO) 2.8 X10'3 (1.1-4.8); LYMPHOCYTES % (AUTO) 27.7 % (21-51); MEAN CORPUSCULAR HEMOGLOBIN 32.2 PG (27.0-31.0); MEAN CORPUSCULAR HGB CONC 34.3 g/dL (33.0-36.5); MEAN CORPUSCULAR VOLUME 93.8 FL (78-98); MEAN PLATELET VOLUME 9.6 FL (7.4-10.4); MONOCYTES # (AUTO) 0.8 X10'3 (0-0.9); MONOCYTES % (AUTO) 8.1 % (2-12); NEUTROPHILS # (AUTO) 5.9 X10'3 (1.8-7.7); NEUTROPHILS % (AUTO) 59.3 % (42-75); PLATELET COUNT 156 X10'3 (140-440); RED BLOOD COUNT 4.37 X10'6 (4.20-5.60); RED CELL DISTRIBUTION WIDTH 13.8 % (11.5-14.5)
[2023-08-29 17:46] LABS: APTT 25 SECONDS (22-32); PROTHROMBIN TIME 10.8 SECONDS (9.0-12.0)
[2023-08-29 17:52] LABS: ALANINE AMINOTRANSFERASE 33 U/L (12-78); ALBUMIN 4.2 G/DL (3.4-5.0); ALBUMIN/GLOBULIN RATIO 1.4 (1.1-1.5); ALKALINE PHOSPHATASE 99 IU/L (46-116); ANION GAP 10 (8-16); ASPARTATE AMINO TRANSFERASE 21 U/L (10-37); BILIRUBIN,TOTAL 0.6 MG/DL (0.1-1.0); BLOOD UREA NITROGEN 20 MG/DL (7-18); BUN/CREATININE RATIO 18.2 (10.0-20.0); CALCIUM 8.8 MG/DL (8.5-10.1); CHLORIDE 108 MMOL/L (99-107); GLUCOSE 140 MG/DL (70-104); POTASSIUM 3.8 MMOL/L (3.5-5.1); SODIUM 144 MMOL/L (135-145); TOTAL PROTEIN 7.1 G/DL (6.4-8.2); eCRCL 40 ML/MIN; eGFR 49 ML/MIN
[2023-08-29 19:31] VITALS: TEMP 98.2
== END 2023-08-29 19:45 | disposition home or self-care (01) ==
LOC: ER 13:55
DX: E11.65 Type 2 diabetes mellitus with hyperglycemia (principal); D69.2 Other nonthrombocytopenic purpura; E78.00 Pure hypercholesterolemia, unspecified; G89.29 Other chronic pain; M54.9 Dorsalgia, unspecified; F31.9 Bipolar disorder, unspecified; Z88.8 Allergy status to other drugs, medicaments and biological substances; Z79.899 Other long term (current) drug therapy; Z88.6 Allergy status to analgesic agent
CPT/HCPCS: 36415; 80053; 82948; 85025; 85610; 85730; 99283; 99284

== ENCOUNTER 2024-03-09 12:41 | Outpatient (CLI) | payer MEDICARE, MEDICAID ==
[~2024-03-09 12:41] MED LIST changes: +VITA-290 PO; -VITA1TAB20 PO
== END 2024-03-09 23:59 | disposition home or self-care (01) ==
LOC: RAD 12:41
PROVIDERS: ATTEND Surgery
DX: K44.9 Diaphragmatic hernia without obstruction or gangrene (principal); K21.9 Gastro-esophageal reflux disease without esophagitis; R13.10 Dysphagia, unspecified; R11.10 Vomiting, unspecified
CPT/HCPCS: 74220